=== PATIENT | female | born 1965 | race Caucasian/White ===

== ENCOUNTER 2018-01-15 22:33 | Emergency (ER) | payer OTHER ==
[~2018-01-15] VITALS: Ht 162.6 cm; Wt 61.2 kg
[~2018-01-15 22:33] MED LIST: Bactrim Ds Tab1 EACH PO; GUAI120S1 PO; Percocet 5-3251 EACH PO; Prednisone20 MG PO; Zithromax250 MG PO
[2018-01-15] MEDS ORDERED: AMPDEX30CR (22:56)
[2018-01-15] MEDS ORDERED: METH40 PO (22:56)
[2018-01-15] MEDS ORDERED: BUPR150ER PO (22:56)
[2018-01-16] MEDS ORDERED: Prednisone50 MG PO (01:15)
[2018-01-16] MEDS ORDERED: Zithromax250 MG PO (01:15)
[2018-01-16] MEDS ORDERED: ALBU90OI INH (01:15)
[2018-01-16] MEDS ORDERED: Atrovent Inha12.9 GM INH (01:15)
== END 2018-01-16 02:00 | disposition home or self-care (01) ==
LOC: ER 22:33
DX: J44.1 Chronic obstructive pulmonary disease with (acute) exacerbation (principal); Z79.899 Other long term (current) drug therapy; F17.210 Nicotine dependence, cigarettes, uncomplicated
CPT/HCPCS: 71046; 94640; 99284; J1100

== ENCOUNTER → 2018-02-11 | Outpatient (CLI) | payer OTHER ==
[~2018-02-11] MED LIST changes: +ALBU90OI INH; +AMPDEX30CR; +Atrovent Inha12.9 GM INH; +BUPR150ER PO; +METH40 PO; +Prednisone50 MG PO
[2018-02-11 18:10] LABS: U Amphetamine Screen Not Detected; U Barbituate Screen Not Detected; U Benzodiazapine Screen Not Detected; U Buprenorphine Screen Not Detected; U Cannabinoids Screen Not Detected; U Cocaine Screen Not Detected; U Methadone Screen DETECTED; U Methamphetamine Screen Not Detected; U Opiates Screen Not Detected; U Oxycodone Screen Not Detected; U Phencyclidine Screen Not Detected; U Propoxyphene Screen Not Detected
== END ==
LOC: LAB 15:00 → LAB SHORT 15:00
PROVIDERS: Psychiatry & Neurology Psychiatry
DX: Z51.81 Encounter for therapeutic drug level monitoring (principal); Z79.899 Other long term (current) drug therapy

== ENCOUNTER 2021-04-04 00:27 | Emergency (ER) | payer OTHER ==
[~2021-04-04] VITALS: Ht 160 cm; Wt 79.4 kg
[~2021-04-04 00:27] MED LIST changes: +ACID REDUCER 1150 MG PO; -AMPDEX30CR; +AMPDEX30CR PO; +ESTROVEN ENERG1 EACH PO; +GINKGO60 MG PO; +SUBOXONE 8 MG-1 EACH SL; +ZYRTEC10 M1 PO
== END 2021-04-04 06:08 | disposition home or self-care (01) ==
LOC: ER 00:27
DX: T40.601A Poisoning by unspecified narcotics, accidental (unintentional), initial encounter (principal); T43.621A Poisoning by amphetamines, accidental (unintentional), initial encounter; S22.32XA Fracture of one rib, left side, initial encounter for closed fracture; X58.XXXA Exposure to other specified factors, initial encounter; Z87.891 Personal history of nicotine dependence
CPT/HCPCS: 71046; 96372; 99284-25; J1885

== ENCOUNTER → 2022-01-06 | Outpatient (CLI) | payer OTHER ==
[2022-01-12 13:44] LABS: Stool Occult Bld Immuno 1 Negative (NEGATIVE)
== END | disposition home or self-care (01) ==
LOC: LAB SHORT 07:00
PROVIDERS: Nurse Practitioner Family
DX: Z12.11 Encounter for screening for malignant neoplasm of colon (principal)
CPT/HCPCS: G0328

== ENCOUNTER → 2022-08-15 | Outpatient (CLI) | payer OTHER | END | disposition home or self-care (01) | LOC: LAB 07:00 → LAB SHORT 07:00 | DX: R19.5 Other fecal abnormalities (principal) | CPT/HCPCS: 87015; 87045; 87046; 87205; 87899 ==

== ENCOUNTER 2025-01-16 23:13 | Emergency (ER) | payer BC ==
[~2025-01-16] VITALS: Ht 162.6 cm; Wt 59.0 kg
[2025-01-16 23:17] VITALS: BP 151/106
== END 2025-01-17 04:00 | disposition home or self-care (01) ==
LOC: ER 23:13
DX: H92.02 Otalgia, left ear (principal); Z87.891 Personal history of nicotine dependence
CPT/HCPCS: 99284